=== PATIENT | male | born 1970 | race Caucasian/White ===

== ENCOUNTER → 2019-05-18 14:19 | Outpatient (CLI) | payer OTHER, SELFPAY ==
--- NOTE | 2019-05-18 | DI.RAD.S_ITS ---
PROCEDURE: XR LUMBAR SPINE 2-3V INDICATIONS: XR LUMBAR SPINE TECHNIQUE: 3 views of the lumbar spine were acquired. COMPARISON: None. FINDINGS: Bones: 5 [id number] vertebrae are present. There is normal bony alignment. No vertebral body compression fractures. No suspicious bony lesions. Multilevel disc degeneration, most notably and moderate at L5-S1 level. Mild L4-L5 and L5-S1 facet joint arthropathy. Trace multilevel retrolisthesis. 3 surgical fixation screws are present extending through the left ischium incompletely visualized. Soft tissues: Overlying bowel gas pattern is normal. No suspicious soft tissue calcifications. IMPRESSION: 1. Multilevel spondylosis, most notably at the L5-S1 level. Dictated by: Omar ZHANG Interpreted: Rubi Chew MD on 05/18/2019 at 14:39 Approved by: Rubi Chew M.D. on 05/18/2019 at 14:58
== END ==
PROVIDERS: PCP Nurse Practitioner Family; Visit Provider Nurse Practitioner Family
DX: M54.5 Low back pain (principal); M47.27 Other spondylosis with radiculopathy, lumbosacral region; M47.26 Other spondylosis with radiculopathy, lumbar region
CPT/HCPCS: 72100

== ENCOUNTER → 2019-05-25 20:39 | Outpatient (CLI) | payer OTHER, SELFPAY ==
--- NOTE | 2019-05-25 20:44 | DI.MRI.S_ITS ---
PROCEDURE: MR LUMBAR SPINE WO CON INDICATIONS: lumbar pain with radiculopathy TECHNIQUE: Noncontrast sagittal T1 spin echo and T2 fast echo, sagittal STIR, axial T1 and T2 fast spin echo through the lumbar spine. In cases with scoliosis, additional coronal T2 fast spin echo may be performed. COMPARISON: [facility], CR, XR LUMBAR SPINE 2-3V, 05/18/2019, 14:22. FINDINGS: Image quality: Excellent. Alignment and Curvature: There is normal bony alignment. Bone Marrow: Marrow is of normal overall signal. No acute vertebral body compression fractures. Spinal Cord: Conus medullaris terminates at the L1 level. Visualized cord demonstrates normal signal and size. Paraspinous Soft Tissues: No paravertebral masses. T11-T12: Mild loss of disc height is seen. Loss of disc signal is seen. Bridging endplate osteophytes are seen. T12-L1: Normal appearance. L1-L2: Normal appearance. L2-L3: The disc height is well-preserved. Loss of disc signal is seen at this level. Mild to moderate disc bulge is seen. Mild bilateral neural foraminal narrowing is seen. Minimal central canal narrowing is seen. L3-L4: Mild loss of disc height is seen. Loss of disc signal is seen. Moderate generalized disc bulge is seen. Moderate bilateral neural foraminal narrowing is seen. Mild to moderate central canal narrowing is seen. L4-L5: The disc height is well-preserved. Loss of disc signal is seen at this level. There is a focal annular fissure seen posteriorly. Mild generalized disc bulge is seen. There is a mild central disc protrusion present. Mild bilateral neural foraminal narrowing is seen. Minimal central canal narrowing is seen. L5-S1: The disc height is well-preserved. Loss of disc signal is seen at this level. There is a faintly seen annular fissure present posteriorly, as on series 2 image 11. Mild generalized disc bulge is seen. No significant neural foraminal or central canal narrowing can be seen. IMPRESSION: Multiple levels of lower spine degenerative change are seen, which are most prominent inferiorly. Annular fissures are seen at L4-L5 and at L5-S1. Dictated by: Channing Laws M.D. on 05/28/2019 at 8:41 Approved by: Channing Laws M.D. on 05/28/2019 at 8:47
== END ==
PROVIDERS: PCP Nurse Practitioner Family; Visit Provider Nurse Practitioner Family
DX: M47.26 Other spondylosis with radiculopathy, lumbar region (principal); M47.27 Other spondylosis with radiculopathy, lumbosacral region
CPT/HCPCS: 72148

== ENCOUNTER → 2019-07-11 09:47 | Outpatient (CLI) | payer OTHER, SELFPAY ==
[2019-07-11 10:16] LABS: Bacteria Urine None Seen; RBC Urine None Seen (0-5/HPF); WBC Urine None Seen (0-5/HPF)
[2019-07-11 11:05] LABS: Appearance Urine UA CLEAR; Bilirubin Urine UA NEGATIVE (NEGATIVE); Color Urine UA YELLOW; Glucose Urine UA NEGATIVE (Negative); Ketones Urine UA NEGATIVE (NEGATIVE); Leukocyte Esterase Urine UA NEGATIVE (NEGATIVE); Nitrite Urine UA NEGATIVE (Negative); Occult Blood Urine UA TRACE-LYSED (Negative); Protein Urine UA NEGATIVE (Negative); pH Urine UA 6.5 (4.5-8.0)
[2019-07-11 11:10] LABS: Culture Indicated Urine Cult Not Indicated; Urine Comments Microscopic Normal
[2019-07-11 11:12] LABS: Hematocrit 45.9 % (41-53); Hemoglobin 15.8 g/dL (13.5-17.5); Mean Corpuscular HGB Conc 34.5 % (30-36); Mean Corpuscular Hemoglobin 32.7 PG (26-34); Mean Corpuscular Volume 94.7 fL (80-100); Platelet Count 173 X10^3/uL (150-400); Red Blood Cell Count 4.84 X10^6/uL (4.5-5.9); Red Cell Distribution Width 13.8 % (11.6-14.8); White Blood Cell Count 4.8 X10^3/uL (4.5-11.0)
[2019-07-11 11:14] LABS: Hemoglobin A1C% w Est Avg Glu 5.4 % (4.0-6.0)
[2019-07-11 12:18] LABS: Alanine Aminotransferase 24 IU/L (<50); Albumin 4.5 g/dL (3.5-5.0); Albumin Globulin Ratio 1.5 (1.0-2.8); Alkaline Phosphatase 57 U/L (38-126); Aspartate Aminotransferase 27 IU/L (17-59); BUN Creatinine Ratio 22.9 (6-22); Bilirubin Total 0.7 mg/dL (0.2-1.3); Blood Urea Nitrogen 16 mg/dL (9-20); Calcium 9.5 mg/dL (8.4-10.2); Carbon Dioxide 25 mmol/L (22-32); Chloride 102 mmol/L (98-107); Estimated Glomerular Filt Rate > 60.0 mL/min (>60); Globulin 3.1 g/dL (1.7-4.1); Glucose 102 mg/dL (70-100); HEMOLYSIS < 15 (0-50); Potassium 3.9 mmol/L (3.4-5.1); Sodium 140 mmol/L (137-145); Total Protein 7.6 g/dL (6.3-8.2)
== END ==
PROVIDERS: PCP Nurse Practitioner Family; Visit Provider Nurse Practitioner Family
DX: E11.9 Type 2 diabetes mellitus without complications (principal)
CPT/HCPCS: 36415; 80053; 81001; 83036; 85027

== ENCOUNTER → 2019-11-20 10:07 | Outpatient (CLI) | payer OTHER, SELFPAY | PROVIDERS: PCP Nurse Practitioner Family; Referring Provider Nurse Practitioner Family; Visit Provider Nurse Practitioner Family | DX: E11.9 Type 2 diabetes mellitus without complications (principal) | CPT/HCPCS: 36415; 83036 ==

== ENCOUNTER → 2020-04-05 09:49 | Outpatient (CLI) | payer OTHER, SELFPAY ==
[2020-04-05 11:10] LABS: Hemoglobin A1C% w Est Avg Glu 6.7 % (4.0-6.0)
== END ==
PROVIDERS: PCP Nurse Practitioner Family; Referring Provider Nurse Practitioner Family; Visit Provider Nurse Practitioner Family
DX: E11.9 Type 2 diabetes mellitus without complications (principal)
CPT/HCPCS: 36415; 83036

== ENCOUNTER → 2020-07-02 09:57 | Outpatient (CLI) | payer OTHER, SELFPAY ==
[2020-07-02 11:00] LABS: Hematocrit 47.9 % (41-53); Hemoglobin 16.4 g/dL (13.5-17.5); Mean Corpuscular HGB Conc 34.3 % (30-36); Mean Corpuscular Hemoglobin 32.5 PG (26-34); Mean Corpuscular Volume 94.7 fL (80-100); Platelet Count 200 X10^3/uL (150-400); Red Blood Cell Count 5.05 X10^6/uL (4.5-5.9); Red Cell Distribution Width 13.1 % (11.6-14.8); White Blood Cell Count 5.8 X10^3/uL (4.5-11.0)
[2020-07-02 11:10] LABS: Alanine Aminotransferase 56 IU/L (<50); Albumin 4.4 g/dL (3.5-5.0); Albumin Globulin Ratio 1.4 (1.0-2.8); Alkaline Phosphatase 67 U/L (38-126); Aspartate Aminotransferase 39 IU/L (17-59); BUN Creatinine Ratio 22.5 (6-22); Blood Urea Nitrogen 16 mg/dL (9-20); Calcium 9.1 mg/dL (8.4-10.2); Carbon Dioxide 30 mmol/L (22-32); Chloride 102 mmol/L (98-107); Cholesterol 183 mg/dL (140-199); Estimated Glomerular Filt Rate > 60.0 mL/min (>60); Globulin 3.2 g/dL (1.7-4.1); Glucose 179 mg/dL (70-100); HDL Cholesterol 33 mg/dL (40-60); HEMOLYSIS < 15 (0-50); LDL Cholesterol Calculated 106 mg/dL (<100); Potassium 3.9 mmol/L (3.4-5.1); Sodium 137 mmol/L (137-145); Total Protein 7.6 g/dL (6.3-8.2); Triglycerides 219 mg/dL (35-150)
[2020-07-02 11:26] LABS: Hemoglobin A1C% w Est Avg Glu 7.4 % (4.0-6.0)
== END ==
PROVIDERS: PCP Nurse Practitioner Family; Referring Provider Nurse Practitioner Family; Visit Provider Nurse Practitioner Family
DX: E11.9 Type 2 diabetes mellitus without complications (principal)
CPT/HCPCS: 36415; 80053; 80061; 83036; 85027

== ENCOUNTER → 2020-12-08 10:00 | Outpatient (CLI) | payer OTHER, SELFPAY ==
[2020-12-08 11:07] LABS: Hematocrit 46.7 % (41-53); Hemoglobin 15.6 g/dL (13.5-17.5); Mean Corpuscular HGB Conc 33.3 % (30-36); Mean Corpuscular Hemoglobin 31.6 PG (26-34); Mean Corpuscular Volume 94.9 fL (80-100); Platelet Count 191 X10^3/uL (150-400); Red Blood Cell Count 4.92 X10^6/uL (4.5-5.9); Red Cell Distribution Width 13.6 % (11.6-14.8); White Blood Cell Count 5.6 X10^3/uL (4.5-11.0)
[2020-12-08 11:13] LABS: Hemoglobin A1C% w Est Avg Glu 9.7 % (4.0-6.0)
[2020-12-08 11:58] LABS: Alanine Aminotransferase 59 IU/L (<50); Albumin 4.1 g/dL (3.5-5.0); Albumin Globulin Ratio 1.3 (1.0-2.8); Alkaline Phosphatase 75 U/L (38-126); Aspartate Aminotransferase 66 IU/L (17-59); BUN Creatinine Ratio 25.4 (6-22); Bilirubin Total 1.2 mg/dL (0.2-1.3); Blood Urea Nitrogen 17 mg/dL (9-20); Calcium 9.3 mg/dL (8.4-10.2); Carbon Dioxide 26 mmol/L (22-32); Chloride 104 mmol/L (98-107); Cholesterol 159 mg/dL (140-199); Estimated Glomerular Filt Rate > 60.0 mL/min (>60); Globulin 3.2 g/dL (1.7-4.1); Glucose 226 mg/dL (70-100); HDL Cholesterol 31 mg/dL (40-60); HEMOLYSIS < 15 (0-50); LDL Cholesterol Calculated 97 mg/dL (<100); Potassium 3.5 mmol/L (3.4-5.1); Sodium 138 mmol/L (137-145); Total Protein 7.3 g/dL (6.3-8.2); Triglycerides 157 mg/dL (35-150)
== END ==
PROVIDERS: PCP Nurse Practitioner Family; Referring Provider Nurse Practitioner Family; Visit Provider Nurse Practitioner Family
DX: E11.9 Type 2 diabetes mellitus without complications (principal); E78.2 Mixed hyperlipidemia
CPT/HCPCS: 36415; 80053; 80061; 83036; 85027

== ENCOUNTER → 2021-02-17 08:01 | Outpatient (CLI) | payer OTHER, SELFPAY ==
--- NOTE | 2021-02-17 08:03 | DI.US.S_ITS ---
PROCEDURE: US ABDOMEN COMPLETE INDICATIONS: ELEVATED LIVER ENZYMES TECHNIQUE: Real-time scanning was performed of the abdominal and retroperitoneal organs, with image documentation. COMPARISON: None. FINDINGS: Liver: The liver demonstrates mildly increased size. The liver demonstrates generalized prominently increased echogenicity. This decreases ultrasound sensitivity for detection of hepatic masses. Gallbladder: There is a hyperechoic heterogeneous focus involving the fundus of the gallbladder that measures up to 11 mm, without abnormal vascularity. The gallbladder wall measures at the upper limits of normal at 3 mm. No gallstones or sludge can be seen. No specific pericholecystic fluid is seen. The sonographic Lawrence sign is negative. Biliary ducts: Not well seen. Pancreas: Visualized portions of the pancreas are sonographically normal. Spleen: Spleen is normal in size and homogeneous in echotexture. Kidneys: Kidneys are normal in size and echotexture. Right kidney measures 11.7 cm long; left kidney measures 11.6 cm long. No hydronephrosis or nephrolithiasis. No solid masses. Aorta: Visualized aorta is normal in caliber at less than 3 cm. Iliacs: Proximal common iliac arteries are normal in caliber at less than 2.5 cm. IVC: Not well seen. Miscellaneous: No free abdominal fluid. IMPRESSION: Mildly enlarged, fatty liver. Likely gallbladder wall polyp. No biliary dilatation. Dictated by: Channing Laws M.D. on 02/17/2021 at 8:42 Approved by: Channing Laws M.D. on 02/17/2021 at 8:43
== END ==
PROVIDERS: PCP Nurse Practitioner Family; Referring Provider Nurse Practitioner Family; Visit Provider Nurse Practitioner Family
DX: R74.8 Abnormal levels of other serum enzymes (principal); K76.0 Fatty (change of) liver, not elsewhere classified
CPT/HCPCS: 76700

== ENCOUNTER → 2021-04-29 09:39 | Outpatient (CLI) | payer OTHER, SELFPAY ==
[2021-04-29 10:19] LABS: Hemoglobin A1C% w Est Avg Glu 7.6 % (4.0-6.0)
[2021-04-29 10:30] LABS: Hematocrit 46.6 % (41-53); Hemoglobin 15.9 g/dL (13.5-17.5); Mean Corpuscular HGB Conc 34.2 % (30-36); Mean Corpuscular Hemoglobin 32.2 PG (26-34); Mean Corpuscular Volume 94.1 fL (80-100); Red Blood Cell Count 4.96 X10^6/uL (4.5-5.9); Red Cell Distribution Width 13.5 % (11.6-14.8)
[2021-04-29 10:41] LABS: Alanine Aminotransferase 36 IU/L (<50); Albumin 4.6 g/dL (3.5-5.0); Albumin Globulin Ratio 1.6 (1.0-2.8); Alkaline Phosphatase 60 U/L (38-126); Aspartate Aminotransferase 32 IU/L (17-59); Bilirubin Unconjugated 0.9 mg/dL (0.0-1.1); Blood Urea Nitrogen 15 mg/dL (9-20); Calcium 9.4 mg/dL (8.4-10.2); Carbon Dioxide 28 mmol/L (22-32); Chloride 101 mmol/L (98-107); Estimated Glomerular Filt Rate > 60.0 mL/min (>60); Globulin 2.9 g/dL (1.7-4.1); Glucose 190 mg/dL (70-100); HEMOLYSIS 21 (0-50); Potassium 4.1 mmol/L (3.4-5.1); Sodium 139 mmol/L (137-145); Total Protein 7.5 g/dL (6.3-8.2)
[2021-04-29 10:59] LABS: Platelet Count 242 X10^3/uL (150-400)
[2021-04-30 04:10] LABS: HBsAg Screen Negative (Negative); Hepatitis A Antibody IgM Negative (Negative); Hepatitis B Core Antibody IgM Negative (Negative); Hepatitis C Antibody <0.1 s/co ratio (0.0-0.9)
[2021-05-01 13:22] LABS: Smooth Muscle Antibody 8 Units (0-19)
[2021-05-01 14:57] LABS: ANA Screen, IFA Negative (.)
== END ==
PROVIDERS: PCP Nurse Practitioner Family; Referring Provider Nurse Practitioner Family; Visit Provider Nurse Practitioner Family
DX: R74.8 Abnormal levels of other serum enzymes (principal); E11.65 Type 2 diabetes mellitus with hyperglycemia
CPT/HCPCS: 36415; 80053; 80074; 80076; 83036; 83516; 85027; 86038

== ENCOUNTER → 2021-08-24 14:47 | Outpatient (CLI) | payer OTHER, SELFPAY ==
[2021-08-24 17:21] LABS: COVID19 -Nasal RAPID Negative (Negative)
== END ==
PROVIDERS: PCP Nurse Practitioner Family; Visit Provider Surgery
DX: Z01.812 Encounter for preprocedural laboratory examination (principal); Z20.822 Contact with and (suspected) exposure to COVID-19
CPT/HCPCS: 87635; C9803

== ENCOUNTER 2021-08-25 13:30 | Day surgery (SDC) | payer OTHER, SELFPAY ==
[2021-08-25 14:01] VITALS: BP 137/83; PULSE 70; RESP 16; TEMP 36.4; O2SAT 94; BMI 33.3
--- NOTE | 2021-08-25 14:10 | PM.HP.1 ---
History of Present Illness History of Present Illness Date Patient Seen: 08/25/21 Time Patient Seen: 14:10 Chief complaint: [facility] [place] Narrative: colon cancer screening. This is his first colonoscopy, no family history or symptoms for colon cancer. Patient History Medical History (Updated 02/25/21 @ 13:34 by CONRADO rGace) Diabetes mellitus type 2, controlled, without complications (01/2018) Eczema Elevated liver enzymes Fatty liver (02/2021) Foot pain (~2013) Lumbar back pain with radiculopathy affecting left lower extremity (12/2018) Mixed hyperlipidemia (2017) Onychomycosis Type 2 diabetes mellitus with hyperglycemia Surgical History (Updated 03/29/19 @ 19:29 by Chelsi Bose) Anesthesia History of hip surgery (~2012) Family & Social History Family History (Updated 03/29/19 @ 19:31 by Chelsi Bose) Father Diabetes mellitus Mother Diabetes mellitus History of heart disease Mental health problem Brother Mental health problem Sister History of heart disease Grandfather Mental health problem History of heart disease Tobacco & Substance use: Smoking Status Never smoker alcohol intake never Meds Home Medications and Allergies Home Medications Medication Instructions Recorded Confirmed Type atorvastatin 10 mg tablet 10 mg PO BEDTIME #90 tab 12/11/20 08/25/21 Rx metformin 500 mg tablet,extended 1,000 mg PO BID #360 tab 12/11/20 08/25/21 Rx release 24 hr Delica lancets #200 ea 12/23/20 Rx One touch verio glucometer #1 ea 12/23/20 Rx One touch verio test strips #200 ea 12/23/20 Rx Allergies Allergy/AdvReac Type Severity Reaction Status Date / Time No Known Drug Allergies Allergy Unverified 12/11/20 15:41 Review of Systems Review of Systems ROS: Yes All systems reviewed with the patient and are negative except as otherwise documented Exam Const General: cooperative and healthy appearing Orientation: alert and oriented x3 HENMT Head: normal to inspection Eyes Sclera: sclerae normal Neck Neck: trachea midline Chest Chest: normal inspection of the chest Resp Effort & Inspection: normal respiratory effort and able to speak in complete sentences Cardio Rate: regular rate Rhythm: regular rhythm GI Palpation: soft Back/Spine/Pelvis Back: normal to inspection Skin General: no rashes or lesions noted Neuro General: patient alert and patient oriented x3 Cognition: normal cognition Extrem General: full ROM Psych Appearance: grossly normal Judgment: judgment good Assessment & Plan Assessment & Plan narrative: Colon cancer screening with colonoscopy using moderate sedation. COVID-19 COVID-19 status: Negative Time Spent With Patient Time with patient: less than 30 minutes Critical Care time: I spent a total of [] minutes of critical care time on this patient's care today; this time is exclusive of procedural time.
[2021-08-25] MEDS: LACTATED RINGERS 1,000 ML 42 ML IV (14:14)
--- NOTE | 2021-08-25 14:22 | PM.OP.ENDO ---
Operative Date/Time/Diagnoses Date of procedure: 08/25/21 Time of procedure: 14:22 Pre-op diagnosis: colon cancer screening Post-op diagnosis: same Procedure & Clinicians Study performed: colonscopy Same procedure as scheduled: Yes Indications: colon cancer screening Surgeon: Gabbi Thakkar Procedure Notes Procedure in detail: Preop diagnosis: Colon cancer screening Postop diagnosis: Same Operative procedure colonoscopy with moderate sedation Surgeon: Salome Thakkar MD Findings: Significant diverticulosis of the descending colon, moderate size No polyps identified Procedure: Patient placed in a lateral position. Rectal exam performed showing normal tone no masses. Colonoscope inserted into the rectum and advanced to the ileocecal valve with minimal difficulty. Insufflation and extraction of the scope and the above findings. Retroflex was included in the rectum. Impression: No polyps. Moderate diverticulosis throughout the sigmoid colon. Plan: Repeat colonoscopy in 10 years unless otherwise indicated by change in clinical condition or family history Scope withdrawal time: 8 Sedation minutes: 14 Findings: diverticulosis Specimen(s): none sent Complications: none Impression: no polyps Post-procedure Recommendations: Colonscopy in 10 years Follow up: weeks Disposition: PACU
[2021-08-25] MEDS: fentaNYL 250 MCG/5 ML INJ IV (14:33)
[2021-08-25] MEDS: MIDAZOLAM 5 MG/5 ML VIAL IV (14:33)
[2021-08-25 14:43] VITALS: BP 132/80; PULSE 62; RESP 16; TEMP 36.4; O2SAT 91
[2021-08-25 14:48] VITALS: BP 115/75; PULSE 61; RESP 21; O2SAT 95
[2021-08-25 14:53] VITALS: BP 108/70; PULSE 61; RESP 19; O2SAT 95
[2021-08-25 15:18] VITALS: BP 128/75; PULSE 57; RESP 17; TEMP 36.6; O2SAT 98
== END 2021-08-25 15:30 | disposition home or self-care (01) ==
PROVIDERS: PCP Nurse Practitioner Family; Referring Provider Surgery; Visit Provider Surgery
PROC: 0DJD8ZZ Inspection of Lower Intestinal Tract, Via Natural or Artificial Opening Endoscopic (ICD-10-PCS; CPT 45378; principal; 2021-08-25 14:30)
DX: Z12.11 Encounter for screening for malignant neoplasm of colon (principal); K57.30 Diverticulosis of large intestine without perforation or abscess without bleeding
CPT/HCPCS: 45378; 99152; J2250; J3010

== ENCOUNTER → 2021-09-09 16:24 | Outpatient (CLI) | payer OTHER, SELFPAY ==
[2021-09-09 17:47] LABS: Hemoglobin A1C% w Est Avg Glu 9.1 % (4.0-6.0)
[2021-09-09 17:48] LABS: Hematocrit 44.6 % (41-53); Hemoglobin 15.4 g/dL (13.5-17.5); Mean Corpuscular HGB Conc 34.6 % (30-36); Mean Corpuscular Hemoglobin 32.3 PG (26-34); Mean Corpuscular Volume 93.4 fL (80-100); Platelet Count 192 X10^3/uL (150-400); Red Blood Cell Count 4.77 X10^6/uL (4.5-5.9); Red Cell Distribution Width 13.6 % (11.6-14.8); White Blood Cell Count 7.2 X10^3/uL (4.5-11.0)
[2021-09-09 17:51] LABS: Alanine Aminotransferase 44 IU/L (<50); Albumin 4.8 g/dL (3.5-5.0); Albumin Globulin Ratio 1.7 (1.0-2.8); Alkaline Phosphatase 59 U/L (38-126); Aspartate Aminotransferase 37 IU/L (17-59); BUN Creatinine Ratio 22.7 (6-22); Bilirubin Total 0.8 mg/dL (0.2-1.3); Blood Urea Nitrogen 17 mg/dL (9-20); Calcium 9.9 mg/dL (8.4-10.2); Carbon Dioxide 27 mmol/L (22-32); Chloride 102 mmol/L (98-107); Estimated Glomerular Filt Rate > 60.0 mL/min (>60); Globulin 2.8 g/dL (1.7-4.1); Glucose 193 mg/dL (70-100); HEMOLYSIS < 15 (0-50); Potassium 4.2 mmol/L (3.4-5.1); Sodium 139 mmol/L (137-145); Total Protein 7.6 g/dL (6.3-8.2)
== END ==
PROVIDERS: PCP Nurse Practitioner Family; Referring Provider Nurse Practitioner Family; Visit Provider Nurse Practitioner Family
DX: E11.65 Type 2 diabetes mellitus with hyperglycemia (principal); Z00.00 Encounter for general adult medical examination without abnormal findings
CPT/HCPCS: 36415; 80053; 83036; 85027

== ENCOUNTER → 2021-10-15 08:15 | Outpatient (CLI) | payer OTHER, SELFPAY ==
--- NOTE | 2021-10-15 08:16 | DI.US.S_ITS ---
PROCEDURE: US ABDOMEN LIMITED INDICATIONS: RUQ PAIN TECHNIQUE: Real-time focused scanning was performed of the abdomen, with image documentation. COMPARISON: [facility], , US ABDOMEN COMPLETE, 02/17/2021, 8:37. FINDINGS: Previously seen 1.1 cm calcified polyp in the gallbladder fundus is unchanged. Gallbladder otherwise normal. Liver mildly enlarged measuring 20 cm maximum transverse dimension with diffuse hepatic steatosis. No hepatic mass. No intrahepatic or extrahepatic biliary ductal dilatation. IMPRESSION: Diffuse moderate hepatic steatosis. Unchanged calcified gallbladder polyp. Dictated by: Uriel Berry M.D. on 10/15/2021 at 9:15 Approved by: Uriel Berry M.D. on 10/15/2021 at 9:16
== END ==
PROVIDERS: Referring Provider Nurse Practitioner Family; Visit Provider Nurse Practitioner Family
DX: K76.0 Fatty (change of) liver, not elsewhere classified (principal); K82.4 Cholesterolosis of gallbladder; R10.11 Right upper quadrant pain
CPT/HCPCS: 76705

== ENCOUNTER → 2021-12-11 15:09 | Outpatient (CLI) | payer OTHER, SELFPAY ==
[2021-12-11 16:31] LABS: Hemoglobin A1C% w Est Avg Glu 7.8 % (4.0-6.0)
[2021-12-11 16:37] LABS: Alanine Aminotransferase 39 IU/L (<50); Albumin 4.8 g/dL (3.5-5.0); Albumin Globulin Ratio 1.5 (1.0-2.8); Alkaline Phosphatase 57 U/L (38-126); Aspartate Aminotransferase 39 IU/L (17-59); BUN Creatinine Ratio 21.1 (6-22); Blood Urea Nitrogen 16 mg/dL (9-20); Calcium 9.3 mg/dL (8.4-10.2); Carbon Dioxide 28 mmol/L (22-32); Chloride 103 mmol/L (98-107); Cholesterol 148 mg/dL (140-199); Estimated Glomerular Filt Rate > 60 mL/min (>60); Globulin 3.1 g/dL (1.7-4.1); Glucose 96 mg/dL (70-100); HDL Cholesterol 34 mg/dL (40-60); HEMOLYSIS < 15 (0-50); LDL Cholesterol Calculated 83 mg/dL (<100); Potassium 3.5 mmol/L (3.4-5.1); Sodium 140 mmol/L (137-145); Total Protein 7.9 g/dL (6.3-8.2); Triglycerides 157 mg/dL (35-150)
[2021-12-11 16:46] LABS: Creatinine Urine Random 147.3 mg/dL
[2021-12-11 16:50] LABS: Microalbumi Creatinin Ratio Ur 16.9 ug/mg CR (<30); Microalbumin Urine Random 2.5 mg/dL (0-1.6)
[2021-12-11 17:03] LABS: TSH w/ Reflex to FT4 2.16 uIU/mL (0.47-4.68)
== END ==
PROVIDERS: PCP Family Medicine; Referring Provider Family Medicine; Visit Provider Family Medicine
DX: E11.65 Type 2 diabetes mellitus with hyperglycemia (principal); R74.8 Abnormal levels of other serum enzymes
CPT/HCPCS: 36415; 80053; 80061; 82043; 82570; 83036; 84443

== ENCOUNTER → 2022-02-23 14:53 | Outpatient (CLI) | payer OTHER, SELFPAY ==
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
== END ==
PROVIDERS: PCP Family Medicine; Referring Provider Family Medicine; Visit Provider Family Medicine
DX: E11.9 Type 2 diabetes mellitus without complications (principal); Z79.84 Long term (current) use of oral hypoglycemic drugs; Z71.3 Dietary counseling and surveillance
CPT/HCPCS: 97802

== ENCOUNTER 2022-04-08 14:04 | Emergency (ER) | payer OTHER, SELFPAY | END 2022-04-08 15:45 | disposition left against medical advice (07) | LOC: ED 15:43 | PROVIDERS: Emergency Provider Emergency Medicine; PCP Family Medicine ==

== ENCOUNTER → 2022-04-20 10:37 | Outpatient (CLI) | payer OTHER, SELFPAY ==
[2022-04-20 12:00] LABS: Hemoglobin A1C% w Est Avg Glu 8.3 % (4.0-6.0)
[2022-04-20 13:19] LABS: Alanine Aminotransferase 43 IU/L (<50); Albumin 4.3 g/dL (3.5-5.0); Albumin Globulin Ratio 1.4 (1.0-2.8); Alkaline Phosphatase 72 U/L (38-126); Aspartate Aminotransferase 31 IU/L (17-59); BUN Creatinine Ratio 18.3 (6-22); Bilirubin Total 0.8 mg/dL (0.2-1.3); Blood Urea Nitrogen 15 mg/dL (9-20); Calcium 8.9 mg/dL (8.4-10.2); Carbon Dioxide 24 mmol/L (22-32); Chloride 101 mmol/L (98-107); Estimated Glomerular Filt Rate > 60 mL/min (>60); Globulin 3.1 g/dL (1.7-4.1); Glucose 188 mg/dL (70-100); HEMOLYSIS < 15 (0-50); Sodium 138 mmol/L (137-145); Total Protein 7.4 g/dL (6.3-8.2)
== END ==
PROVIDERS: PCP Family Medicine; Referring Provider Family Medicine; Visit Provider Family Medicine
DX: E11.65 Type 2 diabetes mellitus with hyperglycemia (principal); R03.0 Elevated blood-pressure reading, without diagnosis of hypertension
CPT/HCPCS: 36415; 80053; 83036

== ENCOUNTER → 2022-06-22 11:43 | Outpatient (CLI) | payer OTHER, SELFPAY ==
[2022-06-22 12:57] LABS: Hemoglobin A1C% w Est Avg Glu 7.5 % (4.0-6.0)
[2022-06-22 13:10] LABS: Alanine Aminotransferase 40 IU/L (<50); Albumin 4.7 g/dL (3.5-5.0); Albumin Globulin Ratio 1.4 (1.0-2.8); Alkaline Phosphatase 67 U/L (38-126); Aspartate Aminotransferase 30 IU/L (17-59); BUN Creatinine Ratio 15.4 (6-22); Blood Urea Nitrogen 12 mg/dL (9-20); Calcium 9.2 mg/dL (8.4-10.2); Carbon Dioxide 27 mmol/L (22-32); Chloride 101 mmol/L (98-107); Cholesterol 219 mg/dL (140-199); Estimated Glomerular Filt Rate > 60 mL/min (>60); Globulin 3.3 g/dL (1.7-4.1); Glucose 138 mg/dL (70-100); HDL Cholesterol 34 mg/dL (40-60); HEMOLYSIS < 15 (0-50); LDL Cholesterol Calculated 146 mg/dL (<100); Sodium 140 mmol/L (137-145); Triglycerides 197 mg/dL (35-150)
== END ==
PROVIDERS: PCP Family Medicine; Referring Provider Family Medicine; Visit Provider Family Medicine
DX: E11.65 Type 2 diabetes mellitus with hyperglycemia (principal); E78.2 Mixed hyperlipidemia
CPT/HCPCS: 36415; 80053; 80061; 83036

== ENCOUNTER → 2023-01-12 12:05 | Outpatient (CLI) | payer OTHER, SELFPAY ==
[2023-01-12 13:01] LABS: Alanine Aminotransferase 33 IU/L (<50); Albumin 4.5 g/dL (3.5-5.0); Albumin Globulin Ratio 1.4 (1.0-2.8); Alkaline Phosphatase 61 U/L (38-126); Aspartate Aminotransferase 29 IU/L (17-59); BUN Creatinine Ratio 17.1 (6-22); Bilirubin Total 0.8 mg/dL (0.2-1.3); Blood Urea Nitrogen 12 mg/dL (9-20); Calcium 9.1 mg/dL (8.4-10.2); Carbon Dioxide 27 mmol/L (22-32); Chloride 104 mmol/L (98-107); Cholesterol 159 mg/dL (140-199); Estimated Glomerular Filt Rate > 60 mL/min (>60); Globulin 3.2 g/dL (1.7-4.1); Glucose 135 mg/dL (70-100); HDL Cholesterol 32 mg/dL (40-60); HEMOLYSIS < 15 (0-50); LDL Cholesterol Calculated 100 mg/dL (<100); Potassium 4.1 mmol/L (3.4-5.1); Sodium 138 mmol/L (137-145); Total Protein 7.7 g/dL (6.3-8.2); Triglycerides 135 mg/dL (35-150)
[2023-01-12 17:04] LABS: Creatinine Urine Random 101.8 mg/dL
[2023-01-12 17:12] LABS: Microalbumi Creatinin Ratio Ur 19.6 ug/mg CR (<30)
[2023-01-13 07:07] LABS: x Labcorp Estim. Avg Glu (eAG) 166 mg/dL (.); x Labcorp Hemoglobin A1c 7.4 % (4.8-5.6)
== END ==
PROVIDERS: PCP Family Medicine; Referring Provider Family Medicine; Visit Provider Family Medicine
DX: R03.0 Elevated blood-pressure reading, without diagnosis of hypertension (principal); E78.2 Mixed hyperlipidemia; E11.9 Type 2 diabetes mellitus without complications
CPT/HCPCS: 36415; 80053; 80061; 82043; 82570; 83036

== ENCOUNTER → 2023-07-18 12:17 | Outpatient (CLI) | payer OTHER, SELFPAY ==
[2023-07-18 13:44] LABS: Hemoglobin A1C% w Est Avg Glu 6.5 % (4.0-6.0)
[2023-07-18 13:57] LABS: Alanine Aminotransferase 30 IU/L (<50); Albumin 4.7 g/dL (3.5-5.0); Albumin Globulin Ratio 1.5 (1.0-2.8); Alkaline Phosphatase 64 U/L (38-126); Aspartate Aminotransferase 30 IU/L (17-59); BUN Creatinine Ratio 18.2 (6-22); Bilirubin Total 1.1 mg/dL (0.2-1.3); Blood Urea Nitrogen 14 mg/dL (9-20); Calcium 9.6 mg/dL (8.4-10.2); Carbon Dioxide 26 mmol/L (22-32); Chloride 102 mmol/L (98-107); Estimated Glomerular Filt Rate > 60 mL/min (>60); Globulin 3.2 g/dL (1.7-4.1); Glucose 108 mg/dL (70-100); HEMOLYSIS < 15 (0-50); Potassium 4.2 mmol/L (3.4-5.1); Sodium 137 mmol/L (137-145); Total Protein 7.9 g/dL (6.3-8.2)
[2023-07-26 06:20] LABS: Percent Free Testosterone 3.26 % (1.50-4.20); Testosterone Free 9.91 ng/dL (5.00-21.00); Testosterone Total 303.9 ng/dL (264.0-916.0)
== END ==
LOC: LAB 12:18
PROVIDERS: PCP Family Medicine; Referring Provider Family Medicine; Visit Provider Family Medicine
DX: N52.9 Male erectile dysfunction, unspecified (principal); R03.0 Elevated blood-pressure reading, without diagnosis of hypertension; E78.2 Mixed hyperlipidemia; E11.9 Type 2 diabetes mellitus without complications
CPT/HCPCS: 36415; 80053; 83036; 84402; 84403

== ENCOUNTER → 2023-11-03 11:47 | Outpatient (CLI) | payer OTHER, SELFPAY ==
--- NOTE | 2023-11-03 | DI.RAD.S_ITS ---
PROCEDURE: XR FOOT LT MIN 3V INDICATIONS: left foot pain TECHNIQUE: 3 views of the foot were acquired. COMPARISON: None. FINDINGS: Bones: No fractures or dislocations. [id number] left foot joint osteoarthritic changes are seen most notably involving 1st MTP joint and 2nd through 4th DIP joints. Well-defined plantar and dorsal calcaneal enthesophytes are seen. No suspicious bony lesions. Soft tissues: No tibiotalar joint effusion. Achilles tendon appears normal. IMPRESSION: No acute left foot fracture or dislocation. [id number] left foot osteoarthritis as above. Well-defined calcaneal enthesophytes. Dictated by: Oswaldo Obrien M.D. on 11/03/2023 at 15:37 Approved by: Oswaldo Obrien M.D. on 11/03/2023 at 15:38
== END ==
PROVIDERS: PCP Family Medicine; Referring Provider Podiatrist; Visit Provider Podiatrist
DX: M19.072 Primary osteoarthritis, left ankle and foot (principal); M79.672 Pain in left foot; M77.32 Calcaneal spur, left foot
CPT/HCPCS: 73630

== ENCOUNTER → 2024-05-21 10:57 | Outpatient (CLI) | payer OTHER, SELFPAY ==
[2024-05-21 12:06] LABS: Add Manual Diff / Slide Review NO; Basophils Absolute Auto 0 /uL (0-100); Basophils Percent Auto 0.5 % (0-2); Eosinophils Absolute Auto 200 /uL (0-450); Eosinophils Percent Auto 3.8 % (2-4); Hematocrit 49.3 % (41-53); Hemoglobin 16.9 g/dL (13.5-17.5); Lymphocytes Absolute Auto 1400 /uL (1100-4500); Lymphocytes Percent Auto 23.5 % (25-40); Mean Corpuscular HGB Conc 34.3 % (30-36); Mean Corpuscular Hemoglobin 32.7 PG (26-34); Mean Corpuscular Volume 95.2 fL (80-100); Monocytes Absolute Auto 400 /uL (0-900); Monocytes Percent Auto 6.3 % (3-14); Neutrophils Absolute Auto 4000 /uL (1500-7000); Neutrophils Percent Auto 65.9 % (50-75); Platelet Count 212 X10^3/uL (150-400); Red Blood Cell Count 5.18 X10^6/uL (4.5-5.9); Red Cell Distribution Width 13.6 % (11.6-14.8); White Blood Cell Count 6.1 X10^3/uL (4.5-11.0)
[2024-05-21 12:17] LABS: Hemoglobin A1C% w Est Avg Glu 6.5 % (4.0-6.0)
[2024-05-21 12:27] LABS: Alanine Aminotransferase 33 IU/L (<50); Albumin 4.6 g/dL (3.5-5.0); Albumin Globulin Ratio 1.5 (1.0-2.8); Alkaline Phosphatase 62 U/L (38-126); Aspartate Aminotransferase 31 IU/L (17-59); BUN Creatinine Ratio 15.3 (6-22); Blood Urea Nitrogen 13 mg/dL (9-20); Calcium 9.5 mg/dL (8.4-10.2); Carbon Dioxide 26 mmol/L (22-32); Chloride 103 mmol/L (98-107); Estimated Glomerular Filt Rate > 60 mL/min (>60); Globulin 3.1 g/dL (1.7-4.1); Glucose 123 mg/dL (70-100); HEMOLYSIS < 15 (0-50); Potassium 4.3 mmol/L (3.4-5.1); Sodium 136 mmol/L (137-145); Total Protein 7.7 g/dL (6.3-8.2)
[2024-05-21 13:04] LABS: Appearance Urine UA CLEAR; Bilirubin Urine UA NEGATIVE (NEGATIVE); Color Urine UA YELLOW; Glucose Urine UA 3+ g/dL (Negative); Ketones Urine UA NEGATIVE (NEGATIVE); Leukocyte Esterase Urine UA NEGATIVE (NEGATIVE); Nitrite Urine UA NEGATIVE (Negative); Occult Blood Urine UA NEGATIVE (Negative); Protein Urine UA NEGATIVE (Negative); Urobilinogen Urine UA 0.2 E.U./dL (0.2); pH Urine UA 5.5 (4.5-8.0)
[2024-05-21 13:13] LABS: Bacteria Urine Occasional (0-1); Culture Indicated Urine Cult Not Indicated; RBC Urine 1-5/HPF (0-5/HPF); Squamous Epithelial Cell Urine 1-5 /HPF (0-5/HPF); Urine Volume 10mL (spun); WBC Urine 1-5/HPF (0-5/HPF)
== END ==
PROVIDERS: PCP Family Medicine; Referring Provider Family Medicine; Visit Provider Family Medicine
DX: E78.2 Mixed hyperlipidemia (principal); E11.9 Type 2 diabetes mellitus without complications; R03.0 Elevated blood-pressure reading, without diagnosis of hypertension; R30.0 Dysuria
CPT/HCPCS: 36415; 80053; 81001; 83036; 84402; 84403; 85025

== ENCOUNTER → 2025-04-05 12:00 | Outpatient (CLI) | payer OTHER, SELFPAY ==
[2025-04-05 12:53] LABS: Add Manual Diff / Slide Review NO; Hematocrit 50.0 % (41-53); Hemoglobin 17.1 g/dL (13.5-17.5); Lymphocytes Absolute Auto 1300 /uL (1100-4500); Mean Corpuscular HGB Conc 34.3 % (30-36); Mean Corpuscular Hemoglobin 32.1 PG (26-34); Mean Corpuscular Volume 93.8 fL (80-100); Platelet Count 226 X10^3/uL (150-400)
[2025-04-05 13:01] LABS: Hemoglobin A1C% w Est Avg Glu 6.9 % (4.0-6.0)
[2025-04-05 13:21] LABS: Alanine Aminotransferase 29 IU/L (<50); Albumin 4.9 g/dL (3.5-5.0); Albumin Globulin Ratio 1.5 (1.0-2.8); Alkaline Phosphatase 74 U/L (38-126); Blood Urea Nitrogen 15 mg/dL (9-20); Calcium 9.4 mg/dL (8.4-10.2); Carbon Dioxide 24 mmol/L (22-32); Chloride 103 mmol/L (98-107); Cholesterol 213 mg/dL (140-199); Estimated Glomerular Filt Rate > 60 mL/min (>60); Globulin 3.2 g/dL (1.7-4.1); Glucose 126 mg/dL (70-99); HDL Cholesterol 38 mg/dL (40-60); HEMOLYSIS < 15 (0-50); Potassium 4.5 mmol/L (3.4-5.1); Sodium 139 mmol/L (137-145); Total Protein 8.1 g/dL (6.3-8.2); Triglycerides 181 mg/dL (35-150)
[2025-04-05 13:52] LABS: TSH w/ Reflex to FT4 2.19 uIU/mL (0.47-4.68)
== END ==
LOC: LAB 12:01
PROVIDERS: PCP Family Medicine; Referring Provider Family Medicine; Visit Provider Family Medicine
DX: K76.0 Fatty (change of) liver, not elsewhere classified (principal); I10 Essential (primary) hypertension; Z12.5 Encounter for screening for malignant neoplasm of prostate; E78.2 Mixed hyperlipidemia; E11.9 Type 2 diabetes mellitus without complications
CPT/HCPCS: 36415; 80053; 80061; 83036; 84443; 85025; G0103